=== PATIENT | male | born 1960 | race Caucasian/White ===

== ENCOUNTER 2020-07-17 08:50 | Day surgery (SDC) | payer OTHER ==
[2020-07-16 12:50] VITALS: BMI 24.7
[2020-07-17 10:01] VITALS: BP 130/79; TEMP 97.5
--- NOTE | 2020-07-17 14:11 | CT ---
PROCEDURE: CT Liver Perc Biopsy PROVIDED CLINICAL HISTORY: Large right hilar mass with mediastinal lymphadenopathy and multiple metastatic lesions seen througho ut the liver. Biopsy of a hepatic lesion was requested. COMPARISON: CT abdomen and pelvis obtained from [facility] on 07/01/2020 TECHNIQUE: The procedure including the risks and complications were explained to the patient and the patient's w cassia, and informed consent was obtained. The patient was placed on the CT scan table in the supine position. Limited noncontrasted CT images were obtained through the liver with grid localizer in plac e overlying the midline upper abdomen. An area overlying the left hepatic lobe anteriorly was marked, and the area was meticulously prepped and draped in usual sterile fashion. The skin and subcutaneous tissues were infiltrated with buffered 1% lidocaine for local anesthesia. A small skin incision was made. A 17-gauge guide needle was advanced followed by axial noncontrasted CT images. The needle was then further advanced into the left hepatic lobe with positioning confirmed with axial CT imaging. Utilizing coaxial technique, a single 18-gauge core needle biopsy specimen was obtained. Specimen was evaluated by the pathologist, and lesional tissue was obtained. One additi onal biopsy was requested. As result, a second biopsy was performed again utilizing coaxial technique. The inner stylette was replaced, and the needle was removed. Hemostasis was achieved with direct pressure. A dry sterile dressing was placed at puncture site. The patient tolerated the procedure well and with out immediate complication. Patient was transported to radiology nurses holding area for further monitoring prior to discharge. IMPRESSION: Technically successful CT-guided percutaneous biopsy of left hepatic lobe metastatic lesions. Initial evaluation of the biopsy specimen demonstrated lesional tissue. Final pathology result is pending.
--- NOTE | 2020-07-18 09:55 | CT ---
PROCEDURE: CT Liver Perc Biopsy PROVIDED CLINICAL HISTORY: Large right hilar mass with mediastinal lymphadenopathy and multiple metastatic lesions seen througho ut the liver. Biopsy of a hepatic lesion was requested. COMPARISON: CT abdomen and pelvis obtained from [facility] on 07/01/2020 TECHNIQUE: The procedure including the risks and complications were explained to the patient and the patient's w cassia, and informed consent was obtained. The patient was placed on the CT scan table in the supine position. Limited noncontrasted CT images were obtained through the liver with grid localizer in plac e overlying the midline upper abdomen. An area overlying the left hepatic lobe anteriorly was marked, and the area was meticulously prepped and draped in usual sterile fashion. The skin and subcutaneous tissues were infiltrated with buffered 1% lidocaine for local anesthesia. A small skin incision was made. A 17-gauge guide needle was advanced followed by axial noncontrasted CT images. The needle was then further advanced into the left hepatic lobe with positioning confirmed with axial CT imaging. Utilizing coaxial technique, a single 18-gauge core needle biopsy specimen was obtained. Specimen was evaluated by the pathologist, and lesional tissue was obtained. One additi onal biopsy was requested. As result, a second biopsy was performed again utilizing coaxial technique. The inner stylette was replaced, and the needle was removed. Hemostasis was achieved with direct pressure. A dry sterile dressing was placed at puncture site. The patient tolerated the procedure well and with out immediate complication. Patient was transported to radiology nurses holding area for further monitoring prior to discharge. IMPRESSION: Technically successful CT-guided percutaneous biopsy of left hepatic lobe metastatic lesions. Initial evaluation of the biopsy specimen demonstrated lesional tissue. Final pathology result is pending. Transcribed Date/Time: 07/18/2020 9:54 AM
== END 2020-07-17 13:35 | disposition home or self-care (01) ==
LOC: CT 08:50
PROVIDERS: ATTEND Internal Medicine Hematology & Oncology
PROC: 0FB23ZX Excision of Left Lobe Liver, Percutaneous Approach, Diagnostic (ICD-10-PCS; principal; 2020-07-17)
DX: C34.31 Malignant neoplasm of lower lobe, right bronchus or lung (principal); C78.7 Secondary malignant neoplasm of liver and intrahepatic bile duct; D56.3 Thalassemia minor; K21.9 Gastro-esophageal reflux disease without esophagitis; Z87.891 Personal history of nicotine dependence; Z79.899 Other long term (current) drug therapy; Z90.2 Acquired absence of lung [part of]
CPT/HCPCS: 47000; 77012; 88307; 88333; 88341; 88342